=== PATIENT | male | born 1985 | race Caucasian/White ===

== ENCOUNTER 2022-08-07 11:00 | Outpatient (CLI) | payer OTHER | END 2022-08-07 11:01 | disposition home or self-care (01) | PROVIDERS: ATTEND Student in an Organized Health Care Education/Training Program | DX: R29.898 Other symptoms and signs involving the musculoskeletal system (principal); Q25.1 Coarctation of aorta ==

== ENCOUNTER 2022-10-08 10:28 | Outpatient (CLI) | payer OTHER | END 2022-10-08 10:29 | disposition home or self-care (01) | LOC: SCSCT 10:28 | PROVIDERS: ATTEND Internal Medicine | DX: J98.4 Other disorders of lung (principal); R91.1 Solitary pulmonary nodule | CPT/HCPCS: 71250 ==